=== PATIENT | male | born 1955 | race Caucasian/White ===

== ENCOUNTER 2017-04-23 11:06 | Emergency (ER) | payer OTHER, MEDICAID ==
[2017-04-23 11:32] VITALS: TEMP 98.1; O2SAT 98
--- NOTE | 2017-04-23 11:50 | RAD ---
PROCEDURE: Right Ankle Radiographs. HISTORY: lateral pain COMPARISON: None FINDINGS: BONES: There is no acute fracture or bone destruction. Bone alignment is normal. There are metallic wires in the calcaneus. There is diffuse bone demineralization. JOINTS: Normal. No osteoarthritis. Ankle mortise maintained. Talar dome intact SOFT TISSUES: Normal. OTHER FINDINGS: None. IMPRESSION: No acute fracture or dislocation.
--- NOTE | 2017-04-23 12:45 | C.PDOC ---
History Of Present Illness 62 y/o male c/o pain to distal lateral right leg x 2 weeks with unclear preceding injury.. pt sts he had a 'hickey hickey' there, but unclear what happened. pt sts he has some swelling around ankle and area of tenderness to distal leg. no fever or chills. no pain with ambulation. no redness to skin Time Seen by Provider: 04/23/17 11:16 Chief Complaint (Nursing): Abnormal Skin Integrity History Per: Patient History/Exam Limitations: no limitations Onset/Duration Of Symptoms: Days (14) Current Symptoms Are (Timing): Still Present Location Of Injury: Right: Leg Quality Of Symptoms: Swollen Severity: Mild Recent travel outside of the [place]: No Past Medical History Reviewed: Historical Data, Nursing Documentation, Vital Signs Vital Signs: Last Vital Signs Temp 98.1 F 04/23/17 11:12 Pulse 62 04/23/17 13:27 Resp 18 04/23/17 13:27 BP 118/72 04/23/17 13:27 Pulse Ox 98 04/23/17 19:41 - Medical History PMH: Anxiety, Arthritis, Asthma, Depression, HTN, Hypercholesterolemia, Hypothyroidism Denies: Chronic Kidney Disease - [facility] Procedures APPLICATION OF SPLINT (08/15/14) EXCISION OF LUMBAR VERTEBRAL DISC, OPEN APPROACH (04/02/16) EXERCISE TRMT MUSCULOSK LOW BACK/LE W ASSIST EQUIP (04/08/16) GAIT TRAINING/AMBULAT TREATMENT USING ASSIST EQUIPMENT (04/08/16) HOME MANAGEMENT TREATMENT (04/08/16) IRRIGATION OF EAR (01/13/15) RELEASE LUMBAR SPINAL CORD, OPEN APPROACH (04/02/16) Family History: States: Unknown Family Hx - Social History Hx Tobacco Use: No Hx Alcohol Use: No Hx Substance Use: No - Immunization History Hx Tetanus Toxoid Vaccination: No Hx Influenza Vaccination: No Hx Pneumococcal Vaccination: No Review Of Systems Constitutional: Negative for: Fever, Chills Cardiovascular: Negative for: Chest Pain Gastrointestinal: Negative for: Nausea, Vomiting, Abdominal Pain Musculoskeletal: Positive for: Leg Pain (right) Skin: Negative for: Rash Neurological: Negative for: Weakness, Numbness Physical Exam - Physical Exam Appears: Non-toxic, No Acute Distress Skin: Warm, Dry Head: Atraumatic, Normacephalic Extremity: Other (right lower ext+2 dp pulse, scar on lateral heel from prior surgery. foot with no erythema or warmth. mild lateral ankle swelling, non tender, with a 1.5 cm ovoid area to lateral distal leg with ,mild tenderness, mild swelling and slight skin color change, no erythema or warm, no fluctuance. from at ankle and knee. ) ED Course And Treatment O2 Sat by Pulse Oximetry: 98 Disposition - Disposition Referrals: Johnson Sidhu Jr., MD [Medical Doctor] - Disposition: HOME/ ROUTINE Disposition Time: 12:45 Condition: STABLE Additional Instructions: Follow up with Dr Sidhu in next few days. Return to ER for fever, worsening swelling or pain. redness to skin or any other concerns. Forms: Gen Discharge Inst Bhutanese Print Language: BELIZEAN - Clinical Impression Clinical Impression: Pain of right lower leg
[2017-04-23 13:28] VITALS: BP 118/72; PULSE 62; RESP 18
== END 2017-04-23 13:27 | disposition home or self-care (01) ==
LOC: C.ER 11:06
DX: M79.661 Pain in right lower leg (principal)

== ENCOUNTER 2018-05-03 10:04 | Emergency (ER) | payer MEDICAID, MEDICARE ==
[2018-05-03 10:11] VITALS: BP 116/73; PULSE 66; RESP 17; TEMP 97.7; O2SAT 99
--- NOTE | 2018-05-03 10:48 | C.PDOC ---
History Of Present Illness 63 y/o male presents to the ER complaining of decreased hearing in left ear. Patient states that might have " cut his eardrum and he feels like there is "something in the ear." Patient went to his PMD today but he was on vacation. Then, he went to his ENT but the wait was too long. Therefore, he decided to visit the ER. Denies having ear pain, fever, cough, SOB, and CP. Time Seen by Provider: 05/03/18 10:28 Chief Complaint (Nursing): ENT Problem History Per: Patient History/Exam Limitations: None Onset/Duration Of Symptoms: Days Current Symptoms Are (Timing): Still Present Severity: Moderate Past Medical History Reviewed: Historical Data, Nursing Documentation, Vital Signs Vital Signs: Last Vital Signs Temp 97.7 F 05/03/18 10:08 Pulse 66 05/03/18 10:08 Resp 17 05/03/18 10:08 BP 116/73 05/03/18 10:08 Pulse Ox 99 05/03/18 11:32 - Medical History PMH: Anxiety, Arthritis, Asthma, Depression, HTN, Hypercholesterolemia, Hypothyroidism Denies: Chronic Kidney Disease Surgical History: Back Surgery - [facility] Procedures APPLICATION OF SPLINT (08/15/14) EXCISION OF LUMBAR VERTEBRAL DISC, OPEN APPROACH (04/02/16) EXERCISE TRMT MUSCULOSK LOW BACK/LE W ASSIST EQUIP (04/08/16) GAIT TRAINING/AMBULAT TREATMENT USING ASSIST EQUIPMENT (04/08/16) HOME MANAGEMENT TREATMENT (04/08/16) IRRIGATION OF EAR (01/13/15) RELEASE LUMBAR SPINAL CORD, OPEN APPROACH (04/02/16) Family History: States: No Known Family Hx - Social History Hx Tobacco Use: No Hx Alcohol Use: No Hx Substance Use: No - Immunization History Hx Tetanus Toxoid Vaccination: Yes Hx Influenza Vaccination: No Hx Pneumococcal Vaccination: (unk) Review Of Systems Constitutional: Negative for: Fever, Chills Eyes: Negative for: Pain, Conjunctivae Inflammation ENT: Positive for: Other (decreased hearing in left ear). Negative for: Ear Pain, Ear Discharge Cardiovascular: Negative for: Chest Pain Respiratory: Negative for: Cough, Shortness of Breath, SOB with Excertion, Wheezing Gastrointestinal: Negative for: Nausea, Vomiting, Abdominal Pain, Diarrhea, Constipation Genitourinary: Negative for: Dysuria Skin: Negative for: Rash Neurological: Negative for: Weakness, Numbness Physical Exam - Physical Exam Appears: Well, Non-toxic, No Acute Distress Skin: Normal Color, Warm, Dry Head: Atraumatic, Normacephalic Eye(s): bilateral: Normal Inspection, PERRL, EOMI Ear(s): Bilateral: Other (left ear: +drainage, cerumen, and perforated TM right ear: mild cerumen) Nose: Normal Oral Mucosa: Moist Tongue: Normal Appearing Lips: Normal Appearing Teeth: Normal Dentition Gingiva: Normal Appearing Throat: Normal, No Erythema, No Exudate Neck: Supple Chest: Symmetrical Gastrointestinal/Abdominal: Normal Exam, Soft, No Tenderness, No Guarding, No Rebound Extremity: Normal ROM Neurological/Psych: Oriented x3, Normal Speech Gait: Steady ED Course And Treatment O2 Sat by Pulse Oximetry: 99 (RA) Pulse Ox Interpretation: Normal Progress Note: Cerumen was removed from R ear. TM intact. Patient has no pain but perforated L TM with copious discharge. No swelling or mastoid tenderness. Patient has been discharged with prescription for Cipro drops. Patient has been instructed to follow up with his PMD and ENT in 2 days. Disposition - Disposition Disposition: HOME/ ROUTINE Disposition Time: 10:46 Condition: GOOD Additional Instructions: Follow-up with your PMD within 2 days. Follow-up with your ENT within 2 days. Do not put anything in your ear. take full course of antibiotic drops Prescriptions: Ciprofloxacin/Dexamethasone [Ciprodex 0.3%-0.1% 7.5 Ml] 2 drop TID #1 bottle Instructions: Ruptured Eardrum (DC) Forms: [employer] (Malay) Print Language: LAO - Clinical Impression Clinical Impression: Perforated tympanic membrane - Scribe Statement The provider has reviewed the documentation as recorded by the Sheldon Pearson Provider Attestation: All medical record entries made by the Sheldon were at my direction and personally dictated by me. I have reviewed the chart and agree that the record accurately reflects my personal performance of the history, physical exam, medical decision making, and the department course for this patient. I have also personally directed, reviewed, and agree with the discharge instructions and disposition.
== END 2018-05-03 10:54 | disposition home or self-care (01) ==
LOC: C.ER 10:04
DX: H61.21 Impacted cerumen, right ear (principal); H72.92 Unspecified perforation of tympanic membrane, left ear

== ENCOUNTER 2018-09-29 06:47 | Emergency (ER) | payer MEDICARE, MEDICAID ==
[2018-09-29 07:00] VITALS: O2SAT 99
[2018-09-29] MEDS ORDERED: Ofloxacin 0.3% Otic Soln AS STA (07:17)
--- NOTE | 2018-09-29 07:26 | C.PDOC ---
History Of Present Illness 63 year old male presents to ED for evaluation of left ear fullness and difficulty hearing for the last 3 days. Notes he tried to remove wax from the ear and tried over the counter ear wash without improvement. Otherwise, denies fever, chills, headache, or pain. Time Seen by Provider: 09/29/18 07:08 Chief Complaint (Nursing): ENT Problem History Per: Patient History/Exam Limitations: None Onset/Duration Of Symptoms: Days (3) Current Symptoms Are (Timing): Still Present Past Medical History Reviewed: Historical Data, Nursing Documentation, Vital Signs Vital Signs: Last Vital Signs Temp 97.6 F 09/29/18 06:53 Pulse 64 09/29/18 06:53 Resp 18 09/29/18 06:53 BP 129/79 09/29/18 06:53 Pulse Ox 99 09/29/18 06:53 - Medical History PMH: Anxiety, Arthritis, Asthma, Depression, HTN, Hypercholesterolemia, Hyperthyroidism, Hypothyroidism Denies: Chronic Kidney Disease Surgical History: Back Surgery - [facility] Procedures APPLICATION OF SPLINT (08/15/14) EXCISION OF LUMBAR VERTEBRAL DISC, OPEN APPROACH (04/02/16) EXERCISE TRMT MUSCULOSK LOW BACK/LE W ASSIST EQUIP (04/08/16) GAIT TRAINING/AMBULAT TREATMENT USING ASSIST EQUIPMENT (04/08/16) HOME MANAGEMENT TREATMENT (04/08/16) IRRIGATION OF EAR (01/13/15) RELEASE LUMBAR SPINAL CORD, OPEN APPROACH (04/02/16) Family History: States: Unknown Family Hx - Social History Hx Tobacco Use: No Hx Alcohol Use: No Hx Substance Use: No - Immunization History Hx Tetanus Toxoid Vaccination: Yes Hx Influenza Vaccination: No Hx Pneumococcal Vaccination: (unk) Review Of Systems Except As Marked, All Systems Reviewed And Found Negative. Constitutional: Negative for: Fever, Chills ENT: Positive for: Ear Pain (left ear fullness) Musculoskeletal: Negative for: Neck Pain Neurological: Negative for: Headache, Dizziness Physical Exam - Physical Exam Appears: Non-toxic, No Acute Distress Skin: Normal Color, Warm, Dry Head: Atraumatic, Normacephalic Eye(s): bilateral: Normal Inspection, EOMI Ear(s): Left: TM Obscured By Wax (Unable to visualize TM), Other (mild left ear canal swelling and exudates), Right: Normal Nose: Normal Oral Mucosa: Moist Throat: Normal, No Erythema, No Exudate, No Drooling Neck: Normal ROM, Supple Extremity: Normal ROM Neurological/Psych: Oriented x3, Normal Speech ED Course And Treatment O2 Sat by Pulse Oximetry: 99 (RA) Pulse Ox Interpretation: Normal Medical Decision Making Medical Decision Making: Impression: Pt with left ear complaint and exam consistent with Otitis externa. Patient has no fever, headache, dizziness, neuro complaints or mastoid tenderness. Plan is to treat with Ofloxacin drops and have patient follow up with ENT. Disposition Counseled Patient/Family Regarding: Need For Followup, Rx Given - Disposition Referrals: Yoel Ansari MD [Staff Provider] - Aurelia Pollock MD [Non-Staff] - Disposition: HOME/ ROUTINE Disposition Time: 07:26 Condition: GOOD Additional Instructions: Your exam showed external ear infection known as Otitis Externa. Please instill ear drops 10 drops in affected ear once a day for 7 days Follow up with your doctor or ENT specialist if symptoms persist or do not improve Return to hospital if you develop high fevers, severe pain, headaches, dizziness or other concern Prescriptions: Ofloxacin Otic 0.3% [Floxin 0.3% Otic Soln] 10 drop DAILY 7 Days #1 bottle Forms: [employer] (Sao Tomean) - POA Present On Arrival: None - Clinical Impression Clinical Impression: Otitis externa - PA / [employer]ER [employer]YING DEPARTMENT / Resident Statement MD/DO has reviewed & agrees with the documentation as recorded. - Scribe Statement The provider has reviewed the documentation as recorded by the Scribe Yessica Talavera All medical record entries made by the Scribe were at my direction and personally dictated by me. I have reviewed the chart and agree that the record accurately reflects my personal performance of the history, physical exam, medical decision making, and the department course for this patient. I have also personally directed, reviewed, and agree with the discharge instructions and disposition.
[2018-09-29 07:45] VITALS: BP 95/65; PULSE 60; RESP 20; TEMP 97.7
== END 2018-09-29 07:46 | disposition home or self-care (01) ==
LOC: C.ER 06:47
DX: H60.92 Unspecified otitis externa, left ear (principal); E78.00 Pure hypercholesterolemia, unspecified; I10 Essential (primary) hypertension

== ENCOUNTER 2018-10-16 20:47 | Emergency (ER) | payer MEDICARE, MEDICAID ==
--- NOTE | 2018-10-16 22:02 | C.PDOC ---
History Of Present Illness 63 year old male, with no significant past medical or surgical history, presents to the ED for evaluation of diffuse cramping abdominal pain that has been intermittent since 1900 yesterday. Patient states he ate Maori food consisting of shrimp and rice and his symptoms began around one half hour later. Patient denies vomiting, diarrhea, dizziness, syncope, urinary symptoms, recent antibiotics use, or recent travel. Time Seen by Provider: 10/16/18 21:28 Chief Complaint (Nursing): Abdominal Pain History Per: Patient History/Exam Limitations: no limitations Onset/Duration Of Symptoms: Hrs Current Symptoms Are (Timing): Still Present Location Of Pain/Discomfort: Diffuse Radiation Of Pain To:: None Quality Of Discomfort: "Pain" Associated Symptoms: Fever, Nausea. denies: Chills, Vomiting, Diarrhea, Urinary Symptoms Recent travel outside of the [place]: No Additional History Per: Patient Past Medical History Reviewed: Historical Data, Nursing Documentation, Vital Signs Vital Signs: Last Vital Signs Temp 100.2 F H 10/16/18 20:55 Pulse 110 H 10/16/18 20:55 Resp 16 10/16/18 20:55 BP 90/60 L 10/16/18 20:55 Pulse Ox 97 10/16/18 20:55 - Medical History PMH: Anxiety, Arthritis, Asthma, Depression, HTN, Hypercholesterolemia, Hyperthyroidism, Hypothyroidism Denies: Chronic Kidney Disease Surgical History: Back Surgery - [facility] Procedures APPLICATION OF SPLINT (08/15/14) EXCISION OF LUMBAR VERTEBRAL DISC, OPEN APPROACH (04/02/16) EXERCISE TRMT MUSCULOSK LOW BACK/LE W ASSIST EQUIP (04/08/16) GAIT TRAINING/AMBULAT TREATMENT USING ASSIST EQUIPMENT (04/08/16) HOME MANAGEMENT TREATMENT (04/08/16) IRRIGATION OF EAR (01/13/15) RELEASE LUMBAR SPINAL CORD, OPEN APPROACH (04/02/16) Family History: States: Unknown Family Hx - Social History Hx Tobacco Use: No Hx Alcohol Use: No Hx Substance Use: No - Immunization History Hx Tetanus Toxoid Vaccination: Yes Hx Influenza Vaccination: No Hx Pneumococcal Vaccination: (unk) Review Of Systems Constitutional: Positive for: Fever Gastrointestinal: Positive for: Nausea, Abdominal Pain (diffuse ). Negative for: Vomiting Genitourinary: Negative for: Dysuria, Frequency, Hematuria Neurological: Negative for: Dizziness Physical Exam - Physical Exam Appears: Non-toxic, No Acute Distress Skin: Normal Color, Warm, Dry Head: Atraumatic, Normacephalic Eye(s): bilateral: Normal Inspection Oral Mucosa: Dry (slight) Neck: Supple Chest: Symmetrical, No Deformity, No Tenderness Cardiovascular: Rhythm Regular, No Murmur, Other (tachycardic ) Respiratory: Normal Breath Sounds, No Rales, No Rhonchi, No Wheezing Gastrointestinal/Abdominal: Bowel Sounds (positive ), Soft, Tenderness (mild, diffuse), No Rebound, Other (flat) Extremity: Normal ROM Neurological/Psych: Oriented x3, Normal Speech, Normal Cognition ED Course And Treatment - Laboratory Results Result Diagrams: 10/16/18 22:35 10/16/18 22:35 O2 Sat by Pulse Oximetry: 97 (on RA) Pulse Ox Interpretation: Normal Medical Decision Making Medical Decision Making: Impression: 63 year old male with diffuse abdominal pain Plan: * bloodwork * urinalysis * flu swab * Zofran IVP * Tylenol PO * Tamiflu PO * IV Fluids * reassess and disposition Progress: Bloodwork, urinalysis, Flu swab ordered and reviewed. Zofran IVP, Tylenol PO, Tamiflu PO, and IV Fluids given. Pt re-eval. Pt states feeling much better. Denies any abd pain, n/v, or any other complaints at this time. Abd re-examined: Soft, NTTP, benign. Pt eating meal. Understands and agrees to immediately return to ER if increasing pain, vomiting, fevers, or any other concerning, worsening, new or continued sxs. Otherwise, states will f/u with PCP in 1-2 days. Patient is aware that early disease may be missed by CT and to return in [place] for re-evaluation if any continued, worsening, new or continued symptoms. WE DISCUSSED, IMMEDIATELY RETURN TO THE ER IF YOU HAVE WORSENING PAIN, VOMITING, FEVERS, OR ANY OTHER CONCERNING, WORSENING, NEW OR CONTINUED SYMPTOMS. OTHERWISE, FOLLOW UP WITH YOUR DOCTOR IN 1-2 DAYS. CALL [place] FOR APPOINTMENTS Disposition Counseled Patient/Family Regarding: Studies Performed, Diagnosis, Need For Followup - Disposition Referrals: [facility] [Outside] [facility] [Outside] Disposition: HOME/ ROUTINE Disposition Time: 02:00 Condition: IMPROVED Additional Instructions: SHEA JONES, thank you for letting us take care of you today. Your provider was Kristine Pemberton MD and you were treated for VOMITING/FEVER. The emergency medical care you received today was directed at your acute symptoms. If you were prescribed any medication, please fill it and take as directed. It may take several days for your symptoms to resolve. Return to the Emergency Department if your symptoms worsen, do not improve, or if you have any other problems. Please contact your doctor or call one of the physicians/clinics you have been referred to that are listed on the Patient Visit Information form that is included in your discharge packet. Bring any paperwork you were given at discharge with you along with any medications you are taking to your follow up visit. Our treatment cannot replace ongoing medical care by a primary care provider outside of the emergency department. Thank you for allowing the [facility] team to be part of your care today. If you had an X-Ray or CT scan: A Radiologist will review the ED reading if any change in treatment is needed we will contact you. If you had a blood, urine, or wound culture: It will take several days for the results, if any change in treatment is needed we will contact you. If you had an STI test: It will take 48 hours for the results. Please call after 1 week if you have not heard back. Prescriptions: Oseltamivir Phosphate [Tamiflu] 75 mg PO BID #10 capsule Instructions: Flu, Adult (DC), Acute Abdomen (Belly Pain), Adult (DC) Forms: [employer] (Cymraes) - POA Present On Arrival: None - Clinical Impression Clinical Impression: Abdominal pain, Influenza A - Scribe Statement The provider has reviewed the documentation as recorded by the Scribe (Destiny Talavera) Provider Attestation: All medical record entries made by the Scribe were at my direction and personally dictated by me. I have reviewed the chart and agree that the record accurately reflects my personal performance of the history, physical exam, medical decision making, and the department course for this patient. I have also personally directed, reviewed, and agree with the discharge instructions and disposition.
[2018-10-16] MEDS ORDERED: Sodium Chloride 0.9% 1,000 ML IV ONE (22:03)
[2018-10-16] MEDS ORDERED: Sodium Chloride 0.9% 1,000 ML ONE (22:13)
[2018-10-16] MEDS ORDERED: Sodium Chloride 0.9% 1,000 ML IV SCH (22:15)
[2018-10-16 22:43] LABS: BASO % 0.5 % (0.0-2.0); HEMOGLOBIN 13.7 g/dL (12.0-18.0); LYMPH # 0.4 K/uL (1.0-4.3); MEAN CELL VOLUME 91.6 fL (80.0-94.0); MEAN CORPUSCULAR HEMOGLOBIN 31.1 pg (27.0-31.0); MEAN CORPUSCULAR HGB CONC 33.9 g/dL (33.0-37.0); MEAN PLATELET VOLUME 10.9 fL (7.2-11.7); MONO # 0.4 K/uL (0.0-0.8); MONO % 10.3 % (0.0-10.0); NEUT # 3.3 K/uL (1.8-7.0); RBC 4.41 Mil/uL (4.40-5.90); RED CELL DISTRIBUTION WIDTH 13.7 % (11.5-14.5); WHITE BLOOD COUNT 4.1 K/uL (4.8-10.8)
[2018-10-16 22:44] LABS: NEUT % 79.2 % (50.0-75.0)
[2018-10-16 23:03] LABS: ALB/GLOB RATIO 1.6 (1.0-2.1); ALBUMIN 4.4 g/dL (3.5-5.0); ALT/SGPT 38 U/L (21-72); AST/SGOT 38 U/L (17-59); BLOOD UREA NITROGEN 11 mg/dL (9-20); CALCIUM 9.1 mg/dl (8.6-10.4); GFR NON-AFRICAN AMERICAN > 60; LIPASE 78 U/L (23-300)
[2018-10-16 23:17] LABS: VENOUS BLOOD GAS BASE EXCESS 3.4 mmol/L (0.0-2.0); VENOUS BLOOD GAS PCO2 36 mmHg (40-60); VENOUS BLOOD GAS PO2 21 mm/Hg (30-55); VENOUS BLOOD PH 7.48 (7.32-7.43)
[2018-10-16 23:51] LABS: SQUAMOUS EPITHIAL < 1 /hpf (0-5); URINE BACTERIA RARE (<OCC); URINE BILIRUBIN NEGATIVE (NEGATIVE); URINE BLOOD NEGATIVE (NEGATIVE); URINE CLARITY Clear (Clear); URINE COLOR Yellow (YELLOW); URINE GLUCOSE (UA) NORMAL (Normal); URINE LEUKOCYTE ESTERASE NEG Leu/uL (Negative); URINE PROTEIN 1+ mg/dL (NEGATIVE)
[2018-10-17 00:45] LABS: VENOUS BLOOD GAS BASE EXCESS -2.5 mmol/L (0.0-2.0); VENOUS BLOOD GAS PCO2 39 mmHg (40-60); VENOUS BLOOD GAS PO2 62 mm/Hg (30-55); VENOUS BLOOD PH 7.37 (7.32-7.43)
[2018-10-17 01:18] VITALS: BP 103/63; PULSE 74; RESP 11; O2SAT 96
[2018-10-17 01:39] VITALS: TEMP 98.6
== END 2018-10-17 01:46 | disposition home or self-care (01) ==
LOC: C.ER 20:47
DX: R10.9 Unspecified abdominal pain (principal); J10.1 Influenza due to other identified influenza virus with other respiratory manifestations; E78.00 Pure hypercholesterolemia, unspecified; I10 Essential (primary) hypertension
CPT/HCPCS: 80053; 81001; 82803; 83690; 85025; 87040; 87086; 87804; 96361; 96374; 99284; J2405; J7030

== ENCOUNTER 2019-02-22 11:59 | Emergency (ER) | payer MEDICARE, MEDICAID ==
[2019-02-22 12:12] VITALS: BP 130/85; PULSE 75; RESP 18; TEMP 98.4; O2SAT 99; BMI 19.8
--- NOTE | 2019-02-22 12:29 | C.PDOC ---
History Of Present Illness 63 year old male presents to ED complaining of left sided neck "pulsing" for the past 2 days, noticed when exercising or walking. He states he feels "pulsing in the neck", with no associated pain. He denies any injury, headache, dizziness, vision changes, weakness or numbness. Time Seen by Provider: 02/22/19 12:22 Chief Complaint (Nursing): Back Pain History Per: Patient History/Exam Limitations: no limitations Onset/Duration Of Symptoms: Days Past Medical History Vital Signs: Last Vital Signs Temp 98.4 F 02/22/19 12:09 Pulse 75 02/22/19 12:09 Resp 18 02/22/19 12:09 BP 130/85 02/22/19 12:09 Pulse Ox 99 02/22/19 12:09 Primary Care Provider: Johnson Sidhu Jr. - Medical History PMH: Anxiety, Arthritis, Asthma, Depression, HTN, Hypercholesterolemia, Hyperthyroidism, Hypothyroidism Surgical History: Back Surgery - [facility] Procedures APPLICATION OF SPLINT (08/15/14) EXCISION OF LUMBAR VERTEBRAL DISC, OPEN APPROACH (04/02/16) EXERCISE TRMT MUSCULOSK LOW BACK/LE W ASSIST EQUIP (04/08/16) GAIT TRAINING/AMBULAT TREATMENT USING ASSIST EQUIPMENT (04/08/16) HOME MANAGEMENT TREATMENT (04/08/16) IRRIGATION OF EAR (01/13/15) RELEASE LUMBAR SPINAL CORD, OPEN APPROACH (04/02/16) Family History: States: Unknown Family Hx - Social History Hx Tobacco Use: No Hx Alcohol Use: No Hx Substance Use: No - Immunization History Hx Tetanus Toxoid Vaccination: Yes Hx Influenza Vaccination: No Hx Pneumococcal Vaccination: (unk) Review Of Systems Constitutional: Negative for: Fever Eyes: Negative for: Vision Change ENT: Negative for: Nose Congestion, Throat Pain Cardiovascular: Negative for: Chest Pain, Palpitations Respiratory: Negative for: Cough, Shortness of Breath Neurological: Negative for: Headache, Dizziness Physical Exam - Physical Exam Appears: Non-toxic, No Acute Distress Skin: Warm, Dry Head: Atraumatic, Tenderness Eye(s): bilateral: Normal Inspection, EOMI Nose: Normal Oral Mucosa: Moist Neck: Normal ROM, No Midline Cervical Tenderness, No Paracervical Tenderness, No Step Off Deformity Chest: Symmetrical, No Deformity, No Tenderness Cardiovascular: Rhythm Regular, No Murmur, No JVD, Other (No carotid bruits) Respiratory: Normal Breath Sounds, No Accessory Muscle Use, No Wheezing Extremity: Bilateral: Atraumatic, Normal ROM ED Course And Treatment O2 Sat by Pulse Oximetry: 99 Medical Decision Making Medical Decision Making: Patient appears well and in no acute distress. Exam was benign. Area of concern shows no swelling, erythema or skin changes to neck, there is no carotid bruits, no JVD. Patient has full ROM to neck and extremities. Patient has no pain. I advise the patient to follow up with PMD and possible cardiology for further evaluation outpatient. 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
== END 2019-02-22 12:32 | disposition home or self-care (01) ==
LOC: C.ER 11:59
DX: M62.838 Other muscle spasm (principal); I10 Essential (primary) hypertension